=== PATIENT | male | born 1955 | race Caucasian/White ===

== ENCOUNTER → 2020-08-30 | Outpatient (CLI) | payer BC ==
--- NOTE | 2020-08-30 13:50 | REP ---
INDICATION: RADICULOPATHY. NO HISTORY OF TRAUMA GIVEN COMPARISON: None. TECHNIQUE: EIGHT VIEWS FINDINGS: THERE IS RATHER MARKED APPEARING C4-5 AND C5-6 DISC SPACE NARROWING WITH HEAVY ANTERIOR AND POSTERIOR OSTEOPHYTIC RIDGING. THE FACET JOINTS APPEAR TO BE WELL ALIGNED BILATERALLY. THERE IS EVIDENCE OF LIMITATION OF FLEXION AND EXTENSION RADIOGRAPHICALLY. THERE IS EVIDENCE OF BILATERAL C4-5 FORAMINAL NARROWING RIGHT GREATER THAN LEFT. 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 IMPRESSION: ADVANCED CHRONIC CHANGES DESCRIBED ABOVE. Although this plain radiographic evaluation of the cervical spine shows no evidence of a fracture, it should be remembered that CT is much more sensitive than plain radiography of the C-spine in detecting fractures. If this examination was ordered to rule out a fracture then CT of the cervical spine is recommended. <Electronically signed by Shawn Antonio > 08/30/20 [id number]
== END ==
LOC: M WUC 13:22
PROVIDERS: ATTEND Physician Assistant
DX: M54.12 Radiculopathy, cervical region (principal)